=== PATIENT | female | born 1960 | race Caucasian/White ===

== ENCOUNTER → 2017-06-10 | Day surgery (SDC) | payer OTHER ==
[~2017-06-10] VITALS: Ht 152.4 cm; Wt 59.0 kg
[~2017-06-10] MED LIST: ADVIL200 MG PO; ARIMIDEX1 MG PO; BACTRIM DS 8001 TA1 PO; BENTYL10 MG PO; INHALERS; MIRALAX POWDER255 G1 PO; PERCOCET 5-3251 EACH PO; Percocet 325 MG1 TAB PO; ZOFRAN ODT4 MG SL
--- NOTE | ~2017-06-10 | PROC NOTE ---
[place], [place] PROCEDURE NOTE NAME: KAROLINE WOODS UNIT #: [id number] ROOM: DOCTOR: SHELTON STEVENS MD BIRTHDATE: [birth year] DOS: 06/10/2017 PREOPERATIVE DIAGNOSIS: Advanced left breast cancer. POSTOPERATIVE DIAGNOSIS: Advanced left breast cancer. PROCEDURE: Right internal jugular MediPort placement. SURGEON: Shelton Stevens MD CURATOR NATURAL HISTORY MUSEUM: JORDY. ANESTHESIA: MAC with local. INDICATIONS: This is a 57-year-old lady who has recurrent advanced left breast cancer for which chemotherapy is required and a MediPort has been requested. The procedure and its complications were explained to the patient in detail preoperatively. Complications that were discussed included but were not limited to bleeding, infection, hematoma/seroma/abscess formation, port infection, hemothorax, pneumothorax and damage to underlying vital structures. She agreed to proceed. DESCRIPTION OF PROCEDURE: After identifying the patient, the patient was brought to the operating suite and laid in the supine position. She was adequately positioned and the parts were then painted and draped in the usual sterile fashion and a timeout procedure was called, IV sedation was administered by the anesthesia team. With the help of an ultrasound probe, the right internal jugular vein was accessed with the help of Seldinger technique. Thereafter, a wire was placed and it was confirmed to be in good position on fluoroscopy. An incision was marked approximately 2 fingerbreadths below the right clavicle and local anesthesia (1% plain lidocaine) was injected. The incision was made and a port pocket was created in the subcutaneous tissue. Thereafter, the catheter was passed over an introduced from this incision to the neck where the right internal jugular vein had been accessed. A sheath with the dilator was passed over the wire and through this the catheter was fed into the superior vena cava until it was found to be in good position on fluoroscopy. The catheter was cut to size and it was attached to the port. Heparin was injected through this port and it was found to inject very well with good flow and also there was good return of blood. At this point, the port was fixed to the underlying fascia with the help of 3-0 Prolene and the subcutaneous tissue was then approximated with the help of 3-0 Vicryl in a running fashion. The skin edges were approximated with the help of 4-0 Vicryl in a subcuticular running fashion. The injection site in the neck was also approximated with the help of 4-0 Vicryl in a subcuticular fashion. A dressing was placed. The patient was brought back to the recovery room in stable fashion. Prior to this, the port was accessed through the skin again and it was found to have good blood flow and good flow of heparin into the catheter. An x-ray was ordered for placement in the recovery room. The patient tolerated the procedure well. There were no complications. Dr. Shelton Stevens, the attending surgeon, was present throughout the operating case. [place], [place] PROCEDURE NOTE NAME: KAROLINE WOODS UNIT #: [id number] ROOM: DOCTOR: SHELTON STEVENS MD BIRTHDATE: [birth year] Shelton Stevens MD CM:PROCNOTE:PROCEDURE NOTE [id number] SHELTON STEVENS MD
[2017-06-10 05:57] LABS: BILIRUBIN NEGATIVE (NEGATIVE); BLOOD NEGATIVE (NEGATIVE); CLARITY CLOUDY (CLEAR); COLOR YELLOW (YELLOW); GLUCOSE NEGATIVE (NEGATIVE); KETONE NEGATIVE (NEGATIVE); LEUKO ESTERASE 1+ (NEGATIVE); NITRITE NEGATIVE (NEGATIVE); PH 5.5 (5.0-9.0); SPECIFIC GRAVITY 1.015 (1.005-1.030); UROBILINOGEN 0.2 E.U./dl (0.2-1.0)
[2017-06-10 06:26] LABS: BACTERIA 3+; EPITHELIAL CELLS 21-30; WBC 21-30 wbc/hpf (0-5)
[2017-06-10 07:08] LABS: BASO # 0.1 10*3/uL (0.0-0.1); BASO % 0.8 % (0.0-1.0); EOS # 0.3 10*3/uL (0.0-0.4); HEMATOCRIT 38.1 % (37.0-47.0); HEMOGLOBIN 13.3 g/dl (12.0-16.0); LYMPH # 2.3 10*3/uL (1.3-4.4); LYMPH % 30.9 % (27.0-41.0); MEAN CELL VOLUME 94.5 fl (81.0-99.0); MEAN CORPUSCULAR HGB CONC 34.9 g/dl (33.0-37.0); MEAN PLATELET VOLUME 10.6 fl (9.6-12.3); MONO # 0.5 10*3/uL (0.1-1.0); MONO % 7.2 % (3.0-9.0); NEUT # 4.3 10*3/uL (2.3-7.9); PLATELET COUNT AUTOMATED 281 10*3/uL (130-400); RED BLOOD COUNT 4.03 10*6/uL (4.10-5.10); RED CELL DISTRI WIDTH 12.5 % (0-14.5); WHITE BLOOD COUNT 7.5 10*3/uL (4.8-10.8)
[2017-06-10 07:22] VITALS: BP 123/77
[2017-06-10 07:51] LABS: BUN 10 mg/dl (7-24); CHLORIDE 106 mmol/L (98-107); CREATININE 0.55 mg/dL (0.55-1.02); POTASSIUM 3.8 mmol/L (3.5-5.1); SODIUM 140 mmol/L (136-145)
[2017-06-10 08:37] VITALS: BP 123/70
[2017-06-10 08:52] VITALS: BP 121/74
[2017-06-10 09:07] VITALS: BP 116/64
== END ==
LOC: SDC 06-09 11:00 → LAB 03:02 → SDC 03:02
PROVIDERS: Surgery
DX: C50.912 Malignant neoplasm of unspecified site of left female breast (principal); J44.9 Chronic obstructive pulmonary disease, unspecified; K21.9 Gastro-esophageal reflux disease without esophagitis; F41.9 Anxiety disorder, unspecified; F32.9 Major depressive disorder, single episode, unspecified; F17.210 Nicotine dependence, cigarettes, uncomplicated; Z98.890 Other specified postprocedural states; Z79.899 Other long term (current) drug therapy

== ENCOUNTER 2018-02-01 01:31 | Emergency (ER) | payer OTHER ==
[~2018-02-01] VITALS: Ht 149.8 cm; Wt 54.4 kg
--- NOTE | ~2018-02-01 | EKG ---
[place], [place] ELECTROCARDIOGRAM REPORT NAME: KAROLINE WOODS UNIT #: [id number] ROOM: DOCTOR: EPIPHANY DRAFT REPORT BIRTHDATE: [birth year] [facility] Test Date: 2018-02-01 Test Time: 01:42:44 Pat Name: KAROLINE WOODS Department: ER Room: 9 Gender: F [employer] Operator: Bin Blackmon : 1960 Requested By: MATHEW LAROSE Order Number: [id number] Reading MD: Raphael Bhatt MD Measurements Intervals [place] Rate: 111 P: 65 ME: 145 QRS: 62 QRSD: 77 T: 60 QT: 328 QTc: [address] T changesSinus tachycardia Electronically Signed On 02-02-2018 8:53:46 PDT by Raphael Bhatt MD CM:EKGRPT:ELECTROCARDIOGRAM REPORT [id number] MATHEW DAVIS DRAFT REPORT MATHEW LAROSE DO
== END 2018-02-01 02:34 | disposition left against medical advice (07) ==
LOC: ED 01:31
DX: R07.9 Chest pain, unspecified (principal); J44.9 Chronic obstructive pulmonary disease, unspecified; Z79.899 Other long term (current) drug therapy